=== PATIENT | male | born 2000 | race African-American/Black ===

== ENCOUNTER 2021-02-24 10:06 | Outpatient (CLI) | payer BC, SELFPAY ==
--- NOTE | ~2021-02-24 | XR_ITS ---
EXAMINATION: XR fl inj shoulder LT - MR/CT DATE: 02/24/2021 11:35 INDICATION: Left shoulder instability. TECHNIQUE: A time-out was performed to verify the patient's name, date of , and procedure to b e performed. The procedure including the risks, benefits, and alternatives was discussed with the pat ient. Risks discussed included bleeding and infection. The patient understood the risks and agreed to proceed. The skin overlying the rotator cuff interval of the left glenohumeral joint was prepped an d draped in usual sterile fashion. Anesthetic was administered with 1% lidocaine subcutaneously. A 22 G needle was advanced under fluoroscopic guidance into the joint. Injection of 1 mL of Omnipaque 240 confirmed intra-articular position of the needle. Subsequently, injectate consisting of 12 mL of 2:1:1 mixture of sterile saline:Omnipaque 240:1% lidocaine mixed 200:1 with 529 mg/mL Multihance lisette olinium contrast was injected. Washout of contrast was seen confirming intra-articular administratio n. The needle was removed and the entry site was cleaned and dressed. There were no immediate compli cations. Fluoroscopy exposure time was 0.3 minutes. The total number of images was 184. Total DAP was 1.09 mGycm^2 FINDINGS: Real-time fluoroscopy demonstrates the needle in the left glenohumeral joint. There is an i rregular contour to the joint capsule at the axillary recess age is likely torn with some extra artic ular extravasation of contrast. The intra-articular contrast also delineates a small Hill-Sachs fract ure trough at the posterolateral aspect of the humeral head. IMPRESSION: 1. Successful left glenohumeral joint injection of gadolinium contrast mixture for subsequent MRI art hrogram which will be dictated separately. 2. Small Hill-Sachs fracture crosses at the posterolateral aspect of the humeral head and likely tear of the capsule at the axillary recess, both findings which could be seen as sequela of an anterior g lenoid humeral dislocation. Reviewed, dictated and finalized at location A. IMPRESSION: 1. Successful left glenohumeral joint injection of gadolinium contrast mixture for subsequent MRI arthrogram which will be dictated separately. 2. Small Hill-Sachs fracture crosses at the posterolateral aspect of the luis l head and likely tear of the capsule at the axillary recess, both findings whi ch could be seen as sequela of an anterior glenoid humeral dislocation.
--- NOTE | ~2021-02-24 | MR_ITS ---
EXAMINATION: MR shoulder LT w con DATE: 02/24/2021 12:28 INDICATION: Left shoulder instability TECHNIQUE: Magnetic resonance imaging (MRI) of the left shoulder was performed following intra-artic ular gadolinium contrast injection and without intravenous contrast. Details of the glenohumeral join t injection have been dictated separately. Sequences included axial T2-weighted FS FSE, axial T1-carlos ghted FS FSE, coronal oblique T1-weighted FS FSE, coronal oblique T2-weighted FSE, sagittal T2-weight ed FS FSE, sagittal T1-weighted FSE, and ABER (abduction external rotation) T1-weighted FS FSE. COMPARISON: None. FINDINGS: Coracoacromial arch: Unfused meso acromial os acromiale. The acromion undersurface is flat in morphology (type I). The cor acoacromial ligament is normal. Acromioclavicular joint is normal. Rotator cuff: The supraspinatus, infraspinatus and teres minor are normal. The subscapularis is normal. Normal rota tor cuff muscle bulk and signal. Biceps tendon, glenoid labrum and glenohumeral cartilage: Long head of the biceps tendon is normal. Normal anterosuperior sublabral foramen at the 1:00-2:00 po sition of the glenoid. There is a Perthes lesion which begins at the inferior margin of the sublingua l foramen which extends inferiorly to the 5:00 position with tear and detachment of the anteroinferio r labrum with approximately 7 mm medial propagation of the tear with stripping of the periosteum to w hich the labral tissue remains attached. There is a chondral injury along the anterior rim of the gle noid which extends approximately 1.4 cm craniocaudally. Contrast extends along a delaminating tear al elijah the bone chondral interface which extends up to 7 mm posteriorly from the rim of the glenoid with slight elevation of the chondral flap. There is partial tear along the right side of the anterior in ferior glenohumeral ligament and more centrally and along a portion of the humeral attachment of the posterior inferior glenohumeral ligament. Bones and other: There is a chronic 6 mm deep Hill-Sachs fracture trough at the posterolateral margin of the humeral h ead without surrounding edema to suggest acute injury. No other fractures identified. Specifically th e osseous glenoid remains intact. Physiologic minimal amount of fluid at the subacromial/subdeltoid b ursa. IMPRESSION: 1. Constellation of findings consistent with a chronic anterior glenohumeral dislocation including a Hill-Sachs fracture trough at the posterolateral aspect of the humeral head, a Perthes lesion with as sociated chondral injury at the anterior to anteroinferior glenoid and partial tear of the anteroinfe rior and posterior inferior glenohumeral ligaments. Reviewed, dictated and finalized at location A. IMPRESSION: 1. Constellation of findings consistent with a chronic anterior glenohumeral di slocation including a Hill-Sachs fracture trough at the posterolateral aspect o f the humeral head, a Perthes lesion with associated chondral injury at the ant erior to anteroinferior glenoid and partial tear of the anteroinferior and post erior inferior glenohumeral ligaments.
== END 2021-02-24 10:07 | disposition home or self-care (01) ==
DX: M25.312 Other instability, left shoulder (principal); Z87.39 Personal history of other diseases of the musculoskeletal system and connective tissue
CPT/HCPCS: 23350; 73222; A9577; Q9966

== ENCOUNTER 2022-05-08 13:02 | Outpatient (CLI) | payer BC, OTHER, SELFPAY ==
--- NOTE | ~2022-05-08 | CT_ITS ---
EXAMINATION: CT foot RT wo con DATE: 05/08/2022 13:34 INDICATION: Right foot pain. TECHNIQUE: Computed tomography (CT) of the right foot was performed without intravenous contrast. Aut omated exposure control and iterative reconstruction technique were employed. The dose-length product was 409.23 mGy-cm. 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 There is a chip fract ure of lateral distal aspect of medial cuneiform at the attachment of Lisfranc ligament. There is lat eral subluxation of second metatarsal with respect to the intermediate cuneiform. There are chip frac ture fragments at dorsal medial aspect of base of first metatarsal. There is a chip fracture of later al distal aspect of lateral cuneiform. 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 IMPRESSION: 1. Lisfranc joint fracture dislocation. Reviewed, dictated and finalized at location A.
== END 2022-05-08 13:03 | disposition home or self-care (01) ==
PROVIDERS: Visit Provider Orthopaedic Surgery
DX: M79.671 Pain in right foot (principal); S93.334A Other dislocation of right foot, initial encounter
CPT/HCPCS: 73700